=== PATIENT | male | born 1990 | race Caucasian/White ===

== ENCOUNTER → 2019-08-28 17:10 | Outpatient (BNVA) | payer MEDICAID, SELFPAY | PROVIDERS: Family Provider Family Medicine; PCP Nurse Practitioner Family; Visit Provider Nurse Practitioner Family | DX: R05 Cough (principal); J02.9 Acute pharyngitis, unspecified | CPT/HCPCS: 87071; 87400; 87635; 87880 ==

== ENCOUNTER 2020-02-03 00:48 | Emergency (ER) | payer MEDICAID, SELFPAY ==
[2020-02-03 00:49] VITALS: BP 149/83; PULSE 100; RESP 16; TEMP 36.3; O2SAT 98; BMI 27.1
--- NOTE | 2020-02-03 00:53 | XRR_ITS ---
PROCEDURE INFORMATION: Exam: XR Right Wrist Exam date and time: 02/03/2020 1:16 AM Age: 29 years old Clinical indication: Injury or trauma; Fall; Initial encounter; Blunt trauma (contusions or hematomas); Wrist; Right; Additional info: Fall with right wrist pain TECHNIQUE: Imaging protocol: XR Right wrist. Views: 3 or more views. COMPARISON: CR Finger RIGHT [id number] 12/31/2015 6:41 PM FINDINGS: Bones/joints: No fractures or dislocations identified. No significant bony abnormality identified. Soft tissues: No subcutaneous gas or radiopaque foreign body identified. XR/XR wrist RT min 3V* [id number] IMPRESSION: 1. No acute findings.
[2020-02-03 00:54] VITALS: PULSE 100
--- NOTE | 2020-02-03 00:55 | ED_ITS ---
HPI - Extremity Problem General: Chief complaint: Extremity Injury, Upper Stated complaint: pain in wrist, fall Time Seen by Provider: 02/03/20 00:52 History of Present Illness: HPI Narrative: Patient is a 29-year-old male who comes to the ED with right wrist pain. Patient says just prior to arrival he fell backwards and caught himself with his right hand extended behind him. After fall he now has pain in his right wrist and has limited range of motion. He currently rates his pain an 8 out of 10. Associated symptoms: Deny chest pain, fever(s) or rash Review of Systems Const: Denies: fever(s), chills or fatigue Eyes: Denies: change in vision or eye discomfort ENMT: Denies: throat pain, odynophagia, nasal discharge or nasal congestion Card: Denies: chest pain, palpitations, edema, swelling of feet/ankles, dyspnea on exertion or orthopnea Resp: Denies: dyspnea, productive cough or non-productive cough GI: Denies: abdominal pain, nausea, vomiting, diarrhea, constipation or hematochezia : Denies: flank pain, difficulty urinating, dysuria or hematuria Musc: Reports: extremity pain (right wrist pain); Denies: neck pain, back pain or extremity swelling Skin/Breast: Denies: rash or new lesions Neuro: Denies: headache(s), numbness in extremities or weakness in extremities PFSH ED PFSH: Social History Smoking and tobacco status: current every day smoker Alcohol intake: current Physical Exam Const: COMMON NORMALS: no acute distress, patient oriented x3, healthy appearing and alert GENERAL APPEARANCE: cooperative and comfortable HENMT: COMMON NORMALS: normocephalic HEAD & SCALP: normocephalic MOUTH: Normal oral and palatal mucosa present THROAT: posterior oropharynx normal and uvula midline Eye: COMMON NORMALS: Equal, round and reactive pupils present PUPIL: Yes Equal, round and reactive pupils present Neck/C-Spine: COMMON NORMALS: supple GENERAL: Yes normal visual inspection Resp: COMMON NORMALS: normal respiratory effort, No retractions, No use of accessory muscles and clear to auscultation bilaterally AUSCULTATION: clear to auscultation bilaterally Cardio: COMMON NORMALS: regular rate, regular rhythm, S1 normal heart sound present, S2 normal heart sound present, No gallops present (Cardio), No clicks present (Cardio), No murmurs present (Cardio) and Peripheral pulses 2+ throughout RATE: regular rate RHYTHM: regular rhythm HEART SOUNDS: S1 normal heart sound present and S2 normal heart sound present PERIPHERAL PULS ES: Peripheral pulses 2+ throughout GI: COMMON NORMALS: Normal to inspection, nondistended, normoactive bowel sounds present, Soft to palpation, non-tender and no masses PALPATION: Yes Soft to palpation : COMMON NORMALS: Yes no CVA tenderness BLADDER/KIDNEY EXAM: Yes no CVA tenderness Back/Pelvis: COMMON NORMALS: no CVA tenderness Extremity: RIGHT UPPER EXTREMITY: Yes wrist Right wrist: Yes inspection (No visible deformity, edema seen around right wrist.), Yes palpation (Tender to palpation over radius aspect of wrist.), Yes ROM (Limited due to pain) and Yes neurovascular exam (Neurovascular intact, radial pulse 2+.) Neuro: COMMON NORMALS: patient oriented x3 and moves all extremities SENSORIUM/ORIENTATION: Yes alert Skin: COMMON NORMALS: no rashes or lesions noted GENERAL SKIN EXAM: no rashes or lesions noted and dry skin Course Vital Signs: Vital signs: Vital Signs Temperature 97.3 F L 02/03/20 00:49 Pulse Rate 100 02/03/20 00:54 Respiratory Rate 16 02/03/20 00:49 Blood Pressure 149/83 02/03/20 00:49 Pulse Oximetry 98 02/03/20 00:49 MDM - Extremity (Nontraumatic) MDM Narrative: Medical decision making narrative: Patient is a 29-year-old male comes to the ED with right wrist pain after falling on outstretched arm. X-ray of right wrist showed scaphoid fracture. Patient was placed in a thumb spica splint and sent home with a prescription for hydrocodone for pain. Order was placed with case management for patient to be referred to Ortho. Patient was told to keep splint on and dry - limit use of right arm. Return to ED precautions given. Patient understood and agreed with plan. Imaging Data^: Xray Ortho: Attestation: I personally reviewed and interpreted this imaging study as follows: My impression: X-ray of right wrist- nondisplaced scaphoid fracture. Discharge Plan Discharge Patient Disposition: Home Clinical Impression: Fracture of scaphoid bone of right wrist Qualifiers: Encounter type: initial encounter Scaphoid bone location: middle third Fracture type: closed Fracture alignment: nondisplaced Qualified Code(s): S62.024A - Nondisplaced fracture of middle third of navicular [scaphoid] bone of right wrist, initial encounter for closed fracture Condition: Stable Prescriptions: No Action amoxicillin 500 mg capsule 500 mg PO BID 10 Days Qty: 20 RF: 0 Discharge Orders: Discharge Order (Routine); Ordered 02/03/20 Ordered By: Raul Rasmussen Discharge Diet: Regular Discharge Activity: Limit activity as instructed Patient Instructions: Scaphoid Fracture (ED) Activity Restrictions/Additional Instructions: Follow-up with medical provider as directed. Case management should be contacting you in the next several days to set up an appointment with orthopedic doctor. Take medications as prescribed. Keep splint on and dry and limit use of right arm. Return to the ER or your medical provider if condition worsens. Please read and understand discharge instructions. If any questions, please ask. 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
[2020-02-03] MEDS: HYDROcodone-acetaminophen 7.5-325 mg Tablet 1 TAB PO (01:04)
[2020-02-03 01:40] VITALS: BP 145/87; PULSE 98; RESP 18; O2SAT 99
--- NOTE | 2020-02-03 09:47 | DCPLANNER ---
Addendum entered by June Huntley 02/04/20 08:35: Dianne from ortho called child welfare caseworker stating that after patients information was reviewed, patient is to follow up with primary care. If patient is continuing to have pain, then can have primary care refer patient back to ortho. Pat also stated that she was not able to speak with patient, but did leave a voicemail for patient regarding this. Original Note: flight reservations manager had message to schedule a follow up appointment for patient with ortho. flight reservations manager called the ortho clinic, spoke with Ale, gave clinic patients information. flight reservations manager was told that patients information would be printed and reviewed. Clinic will call patient with appointment information.
== END 2020-02-03 01:41 | disposition home or self-care (01) ==
PROVIDERS: Emergency Provider Physician Assistant
DX: S62.024A Nondisplaced fracture of middle third of navicular [scaphoid] bone of right wrist, initial encounter for closed fracture (principal); F17.210 Nicotine dependence, cigarettes, uncomplicated; W19.XXXA Unspecified fall, initial encounter
CPT/HCPCS: 12345; 29125; 73110; 99282; 99283

== ENCOUNTER 2020-11-08 17:39 | Emergency (ER) | payer MEDICAID, SELFPAY ==
[2020-11-08 18:25] VITALS: BP 128/83; PULSE 83; RESP 18; TEMP 36.8; O2SAT 97; BMI 32.1
--- NOTE | 2020-11-08 20:33 | XRR_ITS ---
PROCEDURE INFORMATION: Exam: XR Chest Exam date and time: 11/08/2020 8:33 PM Age: 30 years old Clinical indication: Cough and fever TECHNIQUE: Imaging protocol: XR of the chest. Views: 1 view. COMPARISON: CR Chest 2 views* [id number] 08/15/2017 9:11 PM FINDINGS: Lungs: Unremarkable. No consolidation. Pleural spaces: Unremarkable. No pleural effusion. No pneumothorax. Heart/Mediastinum: Borderline cardiomegaly. Bones/joints: No acute abnormality. XR/XR chest 1V portable [id number] IMPRESSION: No acute findings.
--- NOTE | 2020-11-08 20:36 | W.ED.FEVER ---
HPI - Fever General: Chief Complaint: Fever Stated Complaint: FEVER,WEAKNESS,DIZZINESS Time Seen by Provider: 11/08/20 20:32 History of Present Illness: HPI Narrative: Patient is a 30-year-old male comes to the ED with a fever, cough and sore throat. Symptoms started approximately 1 week ago. He says his cough is productive and he gets up a yellow sputum. he was around a person recently who tested positive for COVID-19. Patient is a daily smoker. Associated symptoms: Reports nasal congestion; Deny abdominal pain, flank pain, chills, chest pain, diarrhea, dysuria, headache(s), nausea or vomiting Review of Systems Const: Reports: fever(s); Denies: chills or fatigue Eyes: Denies: change in vision or eye discomfort ENMT: Reports: throat pain, nasal discharge and nasal congestion; Denies: odynophagia Card: Denies: chest pain, palpitations, edema, swelling of feet/ankles, dyspnea on exertion or orthopnea Resp: Reports: productive cough and change in phlegm color (Yellow); Denies: dyspnea or non-productive cough GI: Denies: abdominal pain, nausea, vomiting, diarrhea, constipation or hematochezia : Denies: flank pain, difficulty urinating, dysuria or hematuria Musc: Denies: neck pain, back pain or extremity swelling Skin/Breast: Denies: rash or new lesions Neuro: Denies: headache(s), numbness in extremities or weakness in extremities PFS ED PFSH: Social History Smoking and tobacco status: current every day smoker Alcohol intake: current Physical Exam Const: COMMON NORMALS: no acute distress, patient oriented x3 and alert GENERAL APPEARANCE: cooperative and comfortable HENMT: COMMON NORMALS: normocephalic HEAD & SCALP: normocephalic MOUTH: Normal oral and palatal mucosa present THROAT: posterior oropharynx normal and uvula midline Neck/C-Spine: COMMON NORMALS: supple GENERAL: Yes normal visual inspection Resp: COMMON NORMALS: normal respiratory effort, No retractions, No use of accessory muscles and clear to auscultation bilaterally EFFORT & INSPECTION: Yes able to speak in complete sentences, No tachypneic, No respiratory distress and No labored AUSCULTATION: clear to auscultation bilaterally Cardio: COMMON NORMALS: regular rate, regular rhythm, S1 normal heart sound present, S2 normal heart sound present, No gallops present (Cardio), No clicks present (Cardio), No murmurs present (Cardio) and Peripheral pulses 2+ throughout RATE: regular rate RHYTHM: regular rhythm HEART SOUNDS: S1 normal heart sound present and S2 normal heart sound present PERIPHERAL PULSES: Peripheral pulses 2+ throughout GI: COMMON NORMALS: Normal to inspection, nondistended, normoactive bowel sounds present, Soft to palpation, non-tender and no masses PALPATION: Yes Soft to palpation : COMMON NORMALS: Yes no CVA tenderness BLADDER/KIDNEY EXAM: Yes no CVA tenderness Back/Pelvis: COMMON NORMALS: no CVA tenderness Extremity: COMMON NORMALS: normal to inspection Neuro: COMMON NORMALS: patient oriented x3 and moves all extremities SENSORIUM/ORIENTATION: Yes alert Skin: GENERAL SKIN EXAM: dry skin Course Vital Signs: Vital signs: Vital Signs Temperature 98.8 F 11/08/20 22:03 Pulse Rate 82 11/08/20 22:03 Respiratory Rate 16 11/08/20 22:03 Blood Pressure 137/94 11/08/20 22:03 Pulse Oximetry 100 11/08/20 22:03 MDM - Fever MDM Narrative: Medical decision making narrative: Patient is a 30-year-old male comes to the ED with upper respiratory symptoms. Patient is a daily tobacco smoker. Symptoms of a productive cough with yellow sputum for the past week. Exam findings benign. Vitals stable. CBC, CMP were unremarkable. Chest x-ray showed no acute findings. Rapid Covid test negative. And PCR Covid test is pending. Strep negative. Patient was given 1 L of IV fluids and Solu-Medrol. Patient diagnosed with bronchitis discharged home with a prescription for Z-Frank, Medrol Dosepak and Tessalon Perles. Follow-up with PCP 7 to 10 days for reevaluation. Return to ED precautions given. Patient understood agree with plan. Lab Data: Attestation: I reviewed the patient's lab results. Labs: Lab Results 11/08/20 11/08/20 11/08/20 Range/Units 20:45 20:45 20:56 WBC 6.8 (4.0-10.0) 10^3/ uL RBC 4.97 (4.1-5.3) 10^6/u L Hgb 14.5 (11.7-16.6) g/dL Hct 44.0 (42.0-52.0) % MCV 88.5 (80-94) fL MCH 29.2 (28.0-34.0) pg MCHC 33.0 (30.0-36.0) g/dL RDW 12.4 (12.1-15.1) % Plt Count 244 (130-400) 10^3/c mm MPV 10.6 H (7.4-10.4) fL Neut % (Auto) 40.8 % Lymph % (Auto) 43.9 % Hill % (Auto) 10.9 % Eos % (Auto) 3.4 % Baso % (Auto) 0.7 % Neut # (Auto) 2.75 (1.8-7.7) 10^3/u L Lymph # (Auto) 3.0 (0.8-4.8) 10^3/u L Hill # (Auto) 0.7 (0.2-0.9) 10^3/u L Eos # (Auto) 0.2 (0.0-0.8) 10^3/u L Baso # (Auto) 0.1 (0.0-0.1) 10^3/u L Nucleated RBC % (a uto) 0 % Nucleated RBCs # 0.0 /100WBC Sodium 137 (136-145) mmol/L Potassium 4.0 (3.5-5.1) mmol/L Chloride 99 (98-107) mmol/L Carbon Dioxide 29 (22-29) mmol/L Anion Gap 13.0 (5-19) BUN 5 L (6-20) mg/dL Creatinine 0.8 (0.7-1.2) mg/dL GFR Calculation 114.3 (90-130) mL/min Glucose 83 (65-115) mg/dL Calculated Osmolal ity 280 L (285-295) mOsm/k g Calcium 8.3 L (8.5-10.5) mg/dL Total Bilirubin 0.3 (0.15-1.2) mg/dL AST 22 (0-40) U/L ALT 17 (0-41) U/L Alkaline Phosphata se 80 (40-130) IU/L Total Protein 7.0 (6.6-8.7) g/dL Albumin 4.1 (3.5-5.2) g/dL Globulin 2.9 (1.3-4.6) g/dL SARS-CoV-2 Ag (Rap id) (Negative) Group A Strep Rapi d Negative (Negative) 11/08/20 Range/Units 20:56 WBC (4.0-10.0) 10^3/ uL RBC (4.1-5.3) 10^6/u L Hgb (11.7-16.6) g/dL Hct (42.0-52.0) % MCV (80-94) fL MCH (28.0-34.0) pg MCHC (30.0-36.0) g/dL RDW (12.1-15.1) % Plt Count (130-400) 10^3/c mm MPV (7.4-10.4) fL Neut % (Auto) % Lymph % (Auto) % Hill % (Auto) % Eos % (Auto) % Baso % (Auto) % Neut # (Auto) (1.8-7.7) 10^3/u L Lymph # (Auto) (0.8-4.8) 10^3/u L Hill # (Auto) (0.2-0.9) 10^3/u L Eos # (Auto) (0.0-0.8) 10^3/u L Baso # (Auto) (0.0-0.1) 10^3/u L Nucleated RBC % (a uto) % Nucleated RBCs # /100WBC Sodium (136-145) mmol/L Potassium (3.5-5.1) mmol/L Chloride (98-107) mmol/L Carbon Dioxide (22-29) mmol/L Anion Gap (5-19) BUN (6-20) mg/dL Creatinine (0.7-1.2) mg/dL GFR Calculation (90-130) mL/min Glucose (65-115) mg/dL Calculated Osmolal ity (285-295) mOsm/k g Calcium (8.5-10.5) mg/dL Total Bilirubin (0.15-1.2) mg/dL AST (0-40) U/L ALT (0-41) U/L Alkaline Phosphata se (40-130) IU/L Total Protein (6.6-8.7) g/dL Albumin (3.5-5.2) g/dL Globulin (1.3-4.6) g/dL SARS-CoV-2 Ag (Rap id) Negative (Negative) Group A Strep Rapi d (Negative) Imaging Data^: CXR: Attestation: I personally reviewed and interpreted this imaging study as follows: Radiologist's impression: [address] [address] XRay Report Signed Patient: Yoshi Marcos Unit #: [id number] : 1990 Age/Sex: 30 / M ADM Date: 11/08/20 Loc: ER Room/Bed: Attending Dr: Ordering Provider/Ordering MD: Raul Rasmussen Date of Service: 11/08/20 Procedure(s): XR chest 1V portable [id number] Accession Number(s): [id number] Report Number: [id number] PROCEDURE INFORMATION: Exam: XR Chest Exam date and time: 11/08/2020 8:33 PM Age: 30 years old Clinical indication: Cough and fever TECHNIQUE: Imaging protocol: XR of the chest. Views: 1 view. COMPARISON: CR Chest 2 views* [id number] 08/15/2017 9:11 PM FINDINGS: Lungs: Unremarkable. No consolidation. Pleural spaces: Unremarkable. No pleural effusion. No pneumothorax. Heart/Mediastinum: Borderline cardiomegaly. Bones/joints: No acute abnormality. XR/XR chest 1V portable [id number] IMPRESSION: No acute findings. Dictated By: Magdalena Sanchez Signed By: Magdalena Sanchez Signed Date/Time: 11/08/202124 DD/ 23 Discharge Plan Discharge Patient Disposition: Home Clinical Impression: Bronchitis Condition: Stable Prescriptions: New azithromycin 250 mg tablet See Rx Instructions .ROUTE .COMPLEX Qty: 6 RF: 0 Medrol (Frank) 4 mg tablets,dose pack See Rx Instructions .ROUTE .COMPLEX Qty: 21 RF: 0 Tessalon Perles 100 mg capsule 100 mg PO Q6H PRN (Reason: cough) Qty: 15 RF: 0 No Action amoxicillin 500 mg capsule 500 mg PO BID 10 Days Qty: 20 RF: 0 Discharge Orders: Discharge ED (Routine); Ordered 11/08/20 Ordered By: Raul Rasmussen Discharge Diet: Regular Discharge Activity: Increase activity as tolerated Patient Instructions: Acute Bronchitis (ED) Activity Restrictions/Additional Instructions: Follow-up with medical provider as directed in 7 to 10 days reevaluation. Take medications as prescribed. Take Tylenol or Motrin if you get a fever. Drink plenty of fluids and stay hydrated. Return to the ER or your medical provider if condition worsens. Please read and understand discharge instructions. Thank you for choosing [facility] for your healthcare needs today. Please realize this is an emergency room and that we are providing you with a medical screening exam and this may not be complete and all inclusive of all the testing and or work up that you may need to determine your ailment or severity of your illness. It is very important that you follow up as instructed or that you return to the Emergency Department should you have concerns or if your condition changes or worsens in any way. 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
[2020-11-08] MEDS: sodium chloride 0.9% 1,000 ML 999 ML IV (20:47)
[2020-11-08 20:56] VITALS: PULSE 81; RESP 16; TEMP 36.6; O2SAT 98
[2020-11-08 21:03] LABS: Basophils # 0.1 10^3/uL (0.0-0.1); Basophils % 0.7 %; Eosinophils # 0.2 10^3/uL (0.0-0.8); Eosinophils % 3.4 %; Hemoglobin 14.5 g/dL (11.7-16.6); Lymphocytes % 43.9 %; Mean Corpuscular Hemoglobin 29.2 pg (28.0-34.0); Mean Corpuscular Volume 88.5 fL (80-94); Mean Platelet Volume 10.6 fL (7.4-10.4); Monocytes # 0.7 10^3/uL (0.2-0.9); Monocytes % 10.9 %; Neutrophils # 2.75 10^3/uL (1.8-7.7); Neutrophils % 40.8 %; Nucleated Red Blood Cells % 0 %; Platelet Count 244 10^3/cmm (130-400); Red Blood Count 4.97 10^6/uL (4.1-5.3); Red Cell Distribution Width 12.4 % (12.1-15.1); White Blood Count 6.8 10^3/uL (4.0-10.0)
[2020-11-08 21:07] VITALS: BP 119/90
[2020-11-08 21:20] LABS: Rapid Strep A Test Negative (Negative)
[2020-11-08 21:21] LABS: Alanine Aminotransferase 17 U/L (0-41); Albumin Level 4.1 g/dL (3.5-5.2); Alkaline Phosphatase 80 IU/L (40-130); Aspartate Amino Transferase 22 U/L (0-40); Blood Urea Nitrogen 5 mg/dL (6-20); Calcium 8.3 mg/dL (8.5-10.5); Carbon Dioxide 29 mmol/L (22-29); Chloride 99 mmol/L (98-107); Globulin 2.9 g/dL (1.3-4.6); Glomerular Filtration Rate 114.3 mL/min (90-130); Glucose 83 mg/dL (65-115); Osmolality Calculated 280 mOsm/kg (285-295); Sodium 137 mmol/L (136-145); Total Bilirubin 0.3 mg/dL (0.15-1.2)
[2020-11-08 21:29] LABS: SARS Covid-2 Antigen Negative (Negative)
[2020-11-08 22:03] VITALS: BP 137/94; PULSE 82; RESP 16; TEMP 37.1; O2SAT 100
[2020-11-09 13:53] LABS: Coronavirus Test Green County Not Detected
--- NOTE | 2020-11-10 18:15 | PC.NURSE ---
pt notified of negative COVID results
== END 2020-11-08 22:11 | disposition home or self-care (01) ==
PROVIDERS: Emergency Provider Physician Assistant
DX: J40 Bronchitis, not specified as acute or chronic (principal); F17.210 Nicotine dependence, cigarettes, uncomplicated; Z20.822 Contact with and (suspected) exposure to COVID-19
CPT/HCPCS: 71045; 80053; 85025; 87081; 87426; 87635; 87880; 96361; 96374; 99284; J2405; J2930; J7030